=== PATIENT | female | born 1950 | race Caucasian/White ===

== ENCOUNTER 2020-08-08 06:49 | Day surgery (SDC) | payer MEDICARE ==
[~2020-08-08] VITALS: Ht 157.5 cm; Wt 67.2 kg
[~2020-08-08 06:49] MED LIST: AMLO1TAB PO; PHEN30SP5 NS
[2020-08-08 07:17] VITALS: BP 141/89
[2020-08-08] MEDS ORDERED: WARF10TA45 (07:26)
[2020-08-08] MEDS ORDERED: AMLO2.5T2 PO (07:26)
[2020-08-08] MEDS ORDERED: OMEG-143 PO (07:26)
[2020-08-08] MEDS ORDERED: VITA-268 PO (07:29)
[2020-08-08] MEDS ORDERED: FLAX1CAP4 PO (07:29)
[2020-08-08] MEDS ORDERED: MECO10005 (07:29)
[2020-08-08] MEDS ORDERED: FOLI0.4T2 PO (07:29)
[2020-08-08 07:33] LABS: BASOPHILS % (AUTO) 0.5 % (0-1); EOSINOPHILS # (AUTO) 0.1 X10'3 (0-0.9); EOSINOPHILS % (AUTO) 2.5 % (0-6); HEMATOCRIT 40.1 % (35.0-45.0); HEMOGLOBIN 14.1 g/dl (12.0-16.0); LYMPHOCYTES # (AUTO) 0.4 X10'3 (1.1-4.8); LYMPHOCYTES % (AUTO) 9.5 % (21-51); MEAN CORPUSCULAR HEMOGLOBIN 32.5 PG (27.0-31.0); MEAN CORPUSCULAR HGB CONC 35.1 g/dL (33.0-36.5); MEAN CORPUSCULAR VOLUME 92.6 FL (78-98); MONOCYTES # (AUTO) 0.3 X10'3 (0-0.9); MONOCYTES % (AUTO) 7.3 % (2-12); NEUTROPHILS # (AUTO) 3.8 X10'3 (1.8-7.7); NEUTROPHILS % (AUTO) 80.2 % (42-75); PLATELET COUNT 240 X10'3 (140-440); RED BLOOD COUNT 4.33 X10'6 (4.20-5.60); RED CELL DISTRIBUTION WIDTH 12.9 % (11.5-14.5); WHITE BLOOD COUNT 4.7 X10'3 (4.5-11.0)
[2020-08-08 08:00] LABS: ALBUMIN 3.9 G/DL (3.4-5.0); ANION GAP 6 (8-16); BLOOD UREA NITROGEN 13 MG/DL (7-18); BUN/CREATININE RATIO 16.7 (6.6-38.0); CHLORIDE 107 MMOL/L (99-107); CREATININE 0.78 MG/DL (0.40-0.90); GLUCOSE 112 MG/DL (70-104); POTASSIUM 4.3 MMOL/L (3.5-5.1); SODIUM 142 MMOL/L (135-145); TOTAL CARBON DIOXIDE 29.4 MMOL/L (24-32); eGFR 73 ML/MIN
[2020-08-08] MEDS ORDERED: iohexol 300 MG/1 ML 50ml polymer ONE (09:01)
[2020-08-08] MEDS ORDERED: heparin sodium, porcine/PF 100unit/ml 5ML syringe ONE (09:09)
== END 2020-08-08 09:39 | disposition home or self-care (01) ==
LOC: SSTAY O 06:49
PROVIDERS: ATTEND Radiology Vascular & Interventional Radiology
DX: Z45.2 Encounter for adjustment and management of vascular access device (principal); I82.C11 Acute embolism and thrombosis of right internal jugular vein; C91.10 Chronic lymphocytic leukemia of B-cell type not having achieved remission; I10 Essential (primary) hypertension; Z88.8 Allergy status to other drugs, medicaments and biological substances; Z79.899 Other long term (current) drug therapy; Z79.01 Long term (current) use of anticoagulants
CPT/HCPCS: 36415; 36598; 80048; 85025; 85610; J1642; Q9967

== ENCOUNTER 2021-05-31 17:39 | Emergency (ER) | payer MEDICARE ==
[~2021-05-31] VITALS: Ht 157.5 cm; Wt 61.8 kg
[~2021-05-31 17:39] MED LIST changes: -AMLO1TAB PO; +AMLO2.5T2 PO; +FLAX1CAP4 PO; +FOLI0.4T6 PO; +MECO10005; +OMEG-143 PO; +VITA-268 PO; +WARF10TA45
[2021-05-31] MEDS ORDERED: normal saline 1000ML IV soln IV ONE (18:30)
[2021-05-31] MEDS ORDERED: ondansetron/PF 4mg/2ml inj IV ONE (18:30)
[2021-05-31 19:10] LABS: BASOPHILS % (AUTO) 0.3 % (0-1); EOSINOPHILS % (AUTO) 0 % (0-6); HEMATOCRIT 36.5 % (35.0-45.0); HEMOGLOBIN 12.5 g/dl (12.0-16.0); LYMPHOCYTES # (AUTO) 0.3 X10'3 (1.1-4.8); LYMPHOCYTES % (AUTO) 12.2 % (21-51); MEAN CORPUSCULAR HEMOGLOBIN 30.6 PG (27.0-31.0); MEAN CORPUSCULAR HGB CONC 34.3 g/dL (33.0-36.5); MEAN CORPUSCULAR VOLUME 89.2 FL (78-98); MEAN PLATELET VOLUME 8.3 FL (7.4-10.4); MONOCYTES # (AUTO) 0.2 X10'3 (0-0.9); MONOCYTES % (AUTO) 7.8 % (2-12); NEUTROPHILS # (AUTO) 1.7 X10'3 (1.8-7.7); NEUTROPHILS % (AUTO) 79.7 % (42-75); PLATELET COUNT 277 X10'3 (140-440); RED BLOOD COUNT 4.09 X10'6 (4.20-5.60); RED CELL DISTRIBUTION WIDTH 12.8 % (11.5-14.5); WHITE BLOOD COUNT 2.1 X10'3 (4.5-11.0)
[2021-05-31 19:23] LABS: ALANINE AMINOTRANSFERASE 26 U/L (12-78); ALBUMIN 3.8 G/DL (3.4-5.0); ALKALINE PHOSPHATASE 85 IU/L (46-116); ANION GAP 11 (8-16); ASPARTATE AMINO TRANSFERASE 26 U/L (10-37); BILIRUBIN,TOTAL 0.5 MG/DL (0.1-1.0); BLOOD UREA NITROGEN 11 MG/DL (7-18); BUN/CREATININE RATIO 13.8 (6.6-38.0); CALCIUM 8.8 MG/DL (8.5-10.1); CHLORIDE 108 MMOL/L (99-107); GLUCOSE 133 MG/DL (70-104); MAGNESIUM 2.1 MG/DL (1.5-2.4); POTASSIUM 3.7 MMOL/L (3.5-5.1); SODIUM 145 MMOL/L (135-145); TOTAL CARBON DIOXIDE 25.7 MMOL/L (24-32); TOTAL PROTEIN 7.8 G/DL (6.4-8.2); eGFR 71 ML/MIN
[2021-05-31] MEDS ORDERED: ONDA4TAB6 PO (20:42)
[2021-05-31 20:50] LABS: PLATELET ESTIMATE NORMAL; TOTAL CELLS COUNTED 100
[2021-05-31 20:51] LABS: ANISOCYTOSIS 1+
[2021-05-31 21:37] VITALS: BP 142/74
== END 2021-05-31 21:38 | disposition home or self-care (01) ==
LOC: ER 17:39
DX: R11.2 Nausea with vomiting, unspecified (principal); R63.0 Anorexia; E86.0 Dehydration; R53.1 Weakness; Z88.8 Allergy status to other drugs, medicaments and biological substances; Z79.899 Other long term (current) drug therapy; Z85.9 Personal history of malignant neoplasm, unspecified; Z79.01 Long term (current) use of anticoagulants; Z85.6 Personal history of leukemia; Z86.16 Personal history of COVID-19
CPT/HCPCS: 36415; 71045; 80053; 83605; 83735; 84145; 85007; 85025; 87040; 93005; 96361; 96374; 99285; J2405; J7030

== ENCOUNTER 2021-06-04 17:59 | Emergency (ER) | payer MEDICARE ==
[~2021-06-04] VITALS: Ht 157.5 cm; Wt 61.4 kg
[~2021-06-04 17:59] MED LIST changes: +ONDA4TAB6 PO
[2021-06-04 19:09] LABS: BASOPHILS % (AUTO) 0.4 % (0-1); EOSINOPHILS % (AUTO) 1.2 % (0-6); HEMOGLOBIN 12.3 g/dl (12.0-16.0); LYMPHOCYTES # (AUTO) 0.3 X10'3 (1.1-4.8); LYMPHOCYTES % (AUTO) 13.7 % (21-51); MEAN CORPUSCULAR HEMOGLOBIN 30.6 PG (27.0-31.0); MEAN CORPUSCULAR VOLUME 90.1 FL (78-98); MEAN PLATELET VOLUME 8.4 FL (7.4-10.4); MONOCYTES # (AUTO) 0.3 X10'3 (0-0.9); MONOCYTES % (AUTO) 12.8 % (2-12); NEUTROPHILS # (AUTO) 1.6 X10'3 (1.8-7.7); NEUTROPHILS % (AUTO) 71.9 % (42-75); PLATELET COUNT 301 X10'3 (140-440); RED CELL DISTRIBUTION WIDTH 12.6 % (11.5-14.5); WHITE BLOOD COUNT 2.3 X10'3 (4.5-11.0)
[2021-06-04 19:25] LABS: ALANINE AMINOTRANSFERASE 19 U/L (12-78); ALBUMIN 3.2 G/DL (3.4-5.0); ALBUMIN/GLOBULIN RATIO 0.9 (1.1-1.5); ALKALINE PHOSPHATASE 80 IU/L (46-116); ANION GAP 11 (8-16); ASPARTATE AMINO TRANSFERASE 17 U/L (10-37); BILIRUBIN,TOTAL 0.5 MG/DL (0.1-1.0); BLOOD UREA NITROGEN 19 MG/DL (7-18); BUN/CREATININE RATIO 19.6 (6.6-38.0); CALCIUM 8.3 MG/DL (8.5-10.1); CHLORIDE 105 MMOL/L (99-107); CREATININE 0.97 MG/DL (0.40-0.90); GLUCOSE 149 MG/DL (70-104); MAGNESIUM 2.3 MG/DL (1.5-2.4); POTASSIUM 3.3 MMOL/L (3.5-5.1); SODIUM 144 MMOL/L (135-145); TOTAL CARBON DIOXIDE 27.9 MMOL/L (24-32); TOTAL PROTEIN 6.9 G/DL (6.4-8.2); eGFR 57 ML/MIN
[2021-06-04 19:41] LABS: CLARITY,URINE CLEAR (Clear); COLOR,URINE AMBER (Yellow); UA COLLECTION TYPE CLN CATCH MIDSTREAM
[2021-06-04 19:42] LABS: GLUCOSE, URINE NEGATIVE (Neg); KETONES,URINE NEGATIVE (Neg); LEUKOCYTE ESTERASE ,URINE NEGATIVE (Neg); NITRITES, URINE NEGATIVE (Neg); OCCULT BLOOD,URINE NEGATIVE (Neg); PROTEIN,URINE TRACE mg/dl (Neg); UROBILINOGEN,URINE 0.2 E.U/dL (0.2-1.0)
[2021-06-04 19:49] LABS: FINE GRANULAR CAST 0-3 /LPF (NEGATIVE); MUCUS STRANDS MANY /LPF (Neg); SQUAMOUS EPITHELIAL CELL,UR MODERATE /LPF (FEW)
[2021-06-04 19:50] LABS: BACTERIA,URINE FEW /HPF (Neg); RBC,URINE NONE SEEN /HPF (0-2); WBC,URINE 0-4 /HPF (0-4)
[2021-06-04] MEDS ORDERED: ondansetron/PF 4mg/2ml inj IV ONE (20:10)
[2021-06-04] MEDS ORDERED: normal saline 1000ml 1,000 ML IVB ONE (20:10)
[2021-06-04] MEDS ORDERED: potassium Cl 20 mEq SR tablet PO ONE (20:10)
[2021-06-04 20:55] VITALS: BP 144/76
[2021-06-04 23:07] LABS: TOTAL CELLS COUNTED 100
[2021-06-04 23:08] LABS: PLATELET ESTIMATE NORMAL
== END 2021-06-04 21:36 | disposition home or self-care (01) ==
LOC: ER 17:59
DX: U07.1 COVID-19 (principal); R19.7 Diarrhea, unspecified; E78.00 Pure hypercholesterolemia, unspecified; I10 Essential (primary) hypertension; Z85.9 Personal history of malignant neoplasm, unspecified; Z90.49 Acquired absence of other specified parts of digestive tract; Z88.8 Allergy status to other drugs, medicaments and biological substances; Z79.899 Other long term (current) drug therapy
CPT/HCPCS: 36415; 71045; 80053; 81001; 83605; 83735; 84145; 85007; 85025; 87040; 87635; 93005; 96361; 96374; 99285; C9803; J2405; J7030

== ENCOUNTER 2021-10-11 08:33 | Outpatient (CLI) | payer MEDICARE | END 2021-10-11 23:59 | disposition home or self-care (01) | LOC: RT 08:33 | PROVIDERS: ATTEND Internal Medicine | DX: J98.4 Other disorders of lung (principal); R94.2 Abnormal results of pulmonary function studies | CPT/HCPCS: 94010 ==

== ENCOUNTER 2022-02-07 11:10 | Day surgery (SDC) | payer MEDICARE ==
[~2022-02-07] VITALS: Ht 157.5 cm; Wt 70.4 kg
[2022-02-07 11:20] VITALS: BP 144/78
[2022-02-07] MEDS ORDERED: CHOL125C6 PO (11:48)
[2022-02-07] MEDS ORDERED: FENO145T26 PO (11:48)
[2022-02-07] MEDS ORDERED: ZINC50TA67 PO (11:50)
[2022-02-07] MEDS ORDERED: WARF3TAB56 PO (11:50)
[2022-02-07] MEDS ORDERED: PANT40TA54 PO (11:50)
[2022-02-07] MEDS ORDERED: LIDOcaine 1% W/epiNEPHrine 1:100,000 20ml vial ONE (12:46)
[2022-02-07 13:50] VITALS: BP 140/89
== END 2022-02-07 14:00 | disposition home or self-care (01) ==
LOC: SSTAY O 11:10
PROVIDERS: ATTEND Preventive Medicine Aerospace Medicine
DX: Z45.2 Encounter for adjustment and management of vascular access device (principal); C91.10 Chronic lymphocytic leukemia of B-cell type not having achieved remission; E55.9 Vitamin D deficiency, unspecified; Z79.01 Long term (current) use of anticoagulants; Z88.8 Allergy status to other drugs, medicaments and biological substances; Z87.891 Personal history of nicotine dependence; Z72.89 Other problems related to lifestyle; Z79.899 Other long term (current) drug therapy
CPT/HCPCS: 36415; 36590; 85610; J3490; J7030

== ENCOUNTER 2025-05-11 09:46 | Day surgery (SDC) | payer MEDICARE, OTHER ==
[~2025-05-11] VITALS: Ht 157.5 cm; Wt 58.6 kg
[2025-05-11] VITALS (17 sets, daily range): BP systolic 132–157; BP diastolic 66–89; PULSE 67–96; RESP 10–24; TEMP 97.7; O2SAT 91–100
[2025-05-11] MEDS: ceFAZolin 2gm/dext,iso 50mL 50 ML IV ONE (05:30)
[2025-05-11] MEDS: tranexamic acid 1gm/0.7% sal. 100 ML IV ONE (05:30)
[~2025-05-11 09:46] MED LIST changes: -AMLO2.5T2 PO; +AMLO5TAB10 PO; +DUPI300S SUBCUT; -FLAX1CAP4 PO; -FOLI0.4T6 PO; +LIDOcaine 1% W/epiNEPHrine 1:100,000 20ml vial ONE; -MECO10005; -OMEG-143 PO; -ONDA4TAB6 PO; -PHEN30SP5 NS; -VITA-268 PO; -WARF10TA45; +epiNEPHrine 1 mg/ml 30ml MDV ONE; +methylPREDNISolone acetate 80mg/ml inj**IM only ONE; +oxymetazoline 15 ML nasal spray NS ONE
[2025-05-11] MEDS ORDERED: LIDOcaine 2% (20mg/ml) 5ml vial ONE (11:51)
[2025-05-11] MEDS ORDERED: propofol inj 20 ML IV ONE (11:51)
[2025-05-11] MEDS ORDERED: ondansetron/PF 4mg/2ml inj ONE (11:52)
[2025-05-11] MEDS ORDERED: fentaNYL/PF 50MCG/1 ML 2ML syringe ONE ×2 (11:52→15:10)
[2025-05-11] MEDS: ringers solution, lacted 1,000 ML IV SCH (11:52)
[2025-05-11] MEDS ORDERED: midazolam 1 mg/ML 2ml injection ONE (11:52)
[2025-05-11] MEDS ORDERED: acetaminophen 1,000mg/100ml IV 100 ML IV ONE (11:52)
[2025-05-11] MEDS ORDERED: acetaminophen 1,000mg/100ml IV 0 ML IV ONE (11:52)
[2025-05-11] MEDS: oxymetazoline 15 ML nasal spray NS ONE (11:53)
[2025-05-11] MEDS ORDERED: ePHEDrine 50MG/ML INJ. ONE (12:38)
[2025-05-11] MEDS ORDERED: hydrALAZINE 20mg/ml inj. IV PRN (12:45)
[2025-05-11] MEDS ORDERED: fentaNYL/PF 50MCG/1 ML 2ML syringe IV PRN ×2 (12:45)
[2025-05-11] MEDS ORDERED: labetalol 20mg/4ml (5mg/ml) syringe IV PRN (12:45)
[2025-05-11] MEDS ORDERED: ringers solution, lacted 1,000 ML IV SCH (12:45)
[2025-05-11] MEDS ORDERED: morphine 4 MG/ML inj SYRINge IV PRN ×2 (12:45)
[2025-05-11] MEDS ORDERED: dexamethasone sod phosphate 4mg/ml inj. ONE ×2 (13:45)
[2025-05-11] MEDS ORDERED: desflurane 240ml liquid inh. IH ONE ×2 (13:45)
[2025-05-11] MEDS ORDERED: triamcinolone acetonide 40mg/ml inj ONE (13:48)
[2025-05-11] MEDS ORDERED: cocaine 4% topical solution 4ml bottle ONE (14:04)
[2025-05-11] MEDS: ondansetron/PF 4mg/2ml inj IV PRN (15:54)
--- NOTE | 2025-05-11 16:38 | OPERATIVE REPORT ---
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 * Use of a biologic (Dupixent). 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 * Use of a biologic (Dupixent). PROCEDURES: * Nasal endoscopy surgical with right and left frontal sinusotomy with removal of polyps and placement of frontal stent. * Nasal endoscopy surgical with right and left total ethmoidectomy with removal of polyps. * Nasal endoscopy surgical with right and left middle meatal maxillary antrostomy with removal of polyps. * Nasal endoscopy surgical with right and left sphenoidotomy with removal of polyps. * Stereotactic computer-assisted navigational procedure, extracranial. SURGEON: Saeid Squires MD ANESTHESIA: General laryngeal mask, Dr. Marc. HISTORY: The patient is a 74-year-old female with recurrent sinus polyposis. She has had polyp surgery in 2001 and 2014 and has been refractory to systemic corticosteroids and a biologic (Dupixent). On physical examination, polyposis was visible in the middle meatus and superior meatus and CT scan was confirmatory of pansinus polyposis. The risks, alternatives, and benefits of sinus surgery were explained to the patient and accepted. The patient understands we hope that Dupixent will work postoperatively since she will be starting from 0 polyp status. DESCRIPTION OF PROCEDURE: The patient was brought to the operating room and given a general laryngeal mask anesthesia and prepped and draped in the usual fashion with 1% Xylocaine with 1:100,000 epinephrine was infiltrated into the planned surgical site utilizing endoscope. Image-guided system was attached to the patient and calibration and verification satisfactorily accomplished. The reason we had chosen to carry out the procedure under image guidance was the presence of polyposis along the base of the skull involving the roof of the ethmoid, the frontal sinus and the sphenoid sinus and along the orbit bilaterally involving the lamina papyracea. After a suitable time to last for vasoconstriction, the operative was commenced by microshaving polyposis from the anterior and posterior ethmoid air cell systems. We used an antegrade fashion inferiorly and a retrograde fashion superiorly, along the base of the skull, dissecting out confluent polyposis. At no time was the lamina papyracea or roof of the ethmoid penetrated. We continued dissecting back into the sphenoid sinus and removed polyposis from within the sphenoid using the microshaver along the floor, great care was taken along the lateral wall to avoid injury to the carotid artery and optic nerve. We continued dissecting through the frontal recess, removing recurrent polyposis, filling the frontal recess, and dissected up into the left frontal with a Rad 40 microshaver and removed polyps filling the left frontal. Cottonoids soaked in 1:1000 adrenaline were used throughout the procedure and hemostasis was excellent. Cottonoids soaked in 1:1000 [address] were left in place as we turned our attention to the right side. We carried out a right total ethmoidectomy revision endoscopically, microshaving polyps from the anterior and posterior ethmoid air cell systems. We carried out a right sphenoidotomy with removal of polyps, a right frontal sinusotomy with removal of polyps, and a right middle meatal maxillary antrostomy with removal of polyps. Utilizing the same techniques as described above, having encountered the same findings, namely pansinus polyposis. At no time was the roof of the ethmoid or lamina papyracea transgressed on the right side. A 70-degree high-speed kwadwo yenifer was necessary to remove bone to enter the frontal sinus on the right. Cottonoids were left on the right and we turned our attention to the left. The cottonoids were removed. Hemostasis was intact. A Vectra frontal sinus stent was placed and 5 mL of Decadron was used to irrigate the Vectra to expand it. Bactroban water soluble ointment was placed in the left maxillary sinus and the left ethmoid cavity was filled with PosiSep soaked with thrombin. We turned our attention to the right. A Vectra stent was placed. Bactroban and PosiSep placed. Two cottonoids were placed in each nasal cavity for pressure hemostasis. These will be removed in the recovery room, leaving the patient unpacked. The patient tolerated the procedure well with the accompaniment of minimal blood loss. Saeid Squires MD TID: [id number] RECEIPT: [id number] KULWANT/BERNADINE
[2025-05-11] MEDS: aprepitant 40mg capsule PO ONE (16:47)
[2025-05-11] MEDS: salt irrigation nasal spray 45 ML SPRAY NS PRN (18:54)
== END 2025-05-11 19:23 | disposition home or self-care (01) ==
LOC: PAS 09:46
PROVIDERS: ATTEND Otolaryngology
DX: J32.8 Other chronic sinusitis (principal); J33.8 Other polyp of sinus; I10 Essential (primary) hypertension; J44.9 Chronic obstructive pulmonary disease, unspecified; E78.5 Hyperlipidemia, unspecified; Z79.899 Other long term (current) drug therapy; Z90.49 Acquired absence of other specified parts of digestive tract; Z90.710 Acquired absence of both cervix and uterus; Z98.890 Other specified postprocedural states; Z88.8 Allergy status to other drugs, medicaments and biological substances
CPT/HCPCS: 31259; 31267; 31276; 61782; 82948; A4618; A6402; A7000; J0131; J0169; J1100; J2003; J2250; J2405; J2704; J3010; J3301; J3490; J7030; J7040; J7120; J8501; Z7506; Z7508; Z7512; Z7610; A6449; J1010